=== PATIENT | male | born 1980 | race Caucasian/White ===

== ENCOUNTER 2023-01-17 14:41 | Emergency (ER) | payer SELFPAY ==
--- OUTSIDE RECORDS SUMMARY | 2023-01-17 14:47 | XMS REPORT | Continuity of Care Document ---
:1980 Author Organization [facility] t Address [address] [facility] [address] [place] [address] Care Team Providers Name Role Phone DR JUANIS BOND Attending Clinician Unavailable Inocente Vieira Attending Clinician Annmarie Rae Attending Clinician Edda Gonzalez Attending Clinician DR JUANIS BOND Admitting Clinician Unavailable Problems Condition Condition Condition Status Onset Resolution Last Treating Co mments Source Name Details Category Date Date Treatment Clinician Date M51.36 - M51.36 - Diagnosis Active 2015-06-28 Memoria OTHER OTHER 5-03 10:19:00 l INTERVERTE INTERVERTE 00:01: He rmann BRAL DISC BRAL DISC 00 DEGE DEGE Active 06/26/2015 MH [facility] Sinusitis Sinusitis Problem 2015-11-18 Memoria (disorder) (disorder) 05-08 04:02:37 l 05/09/2015 00:00: Wyatt n Problem 00 11/18/2015 2Complete d 10 day course of AMox-Clav. Denies current fever. 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 04:02:37 l interverte interverte He rmann bral disc bral disc (disorder) (disorder) Problem 11/18/2015 [facility] Left Left Problem Active 2020-02-08 Memor ia maxillary maxillary 05:14:16 l sinusitis sinusitis Herm emile Active Problem 02/08/2020 eCW: [facility] Exercise Exercise Diagnosis Active 2020-02-08 Memoria induced induced 05:14:16 l bronchospa bronchospa He rmann sm sm Active Diagnosis 02/08/2020 eCW: [facility] Seasonal Seasonal Diagnosis Active 2020-02-08 Memoria allergic allergic 05:14:16 l rhinitis rhinitis Wyatt n due to due to pollen pollen Active Diagnosis 02/08/2020 eCW: [facility] Chronic Chronic Diagnosis Active 2020-02-08 Memoria depression depression 05:14:16 l Active [place] Diagnosis 02/08/2020 eCW: [facility] Chronic Chronic Problem Active 2020-02-08 Me moria insomnia insomnia 05:14:16 l Active [place] Problem 02/08/2020 eCW: [facility] Depression Depressio Diagnosis Active 2020-02-08 Memoria with n with 05:14:16 l anxiety anxiety [place] Active Diagnosis 02/08/2020 eCW: [facility] Acute Acute Diagnosis Active 2018-11-17 Mem oria non-recurr non-recurr 04:11:43 l ent ent [place] maxillary maxillary sinusitis sinusitis Active Diagnosis 11/17/2018 eCW: [facility] Syncope, Syncope, Problem Active 2017-11-17 Memoria unspecifie unspecifie 04:11:19 l d syncope d syncope Herm emile type type Active Problem 11/17/2017 eCW: [facility] Exercise-i Exercise- Problem Active 2017-11-17 Memoria nduced induced 04:11:19 l asthma asthma [place] Active Problem 11/17/2017 eCW: [facility] Imbalance Imbalance Problem Active 2017-11-17 Memoria Active 04:11:19 l Problem [place] 11/17/2017 eCW: [facility] Chest pain Chest Problem Active 2017-11-17 M emoria at rest pain at 04:11:19 l rest [place] Active Problem 11/17/2017 eCW: [facility] Lower Lower Problem Active 2017-11-17 Memor ia abdominal abdominal 04:11:19 l pain pain [place] Active Problem 11/17/2017 eCW: [facility] Chronic Chronic Problem Active 2017-11-17 M emoria diarrhea diarrhea 04:11:19 l Active [place] Problem 11/17/2017 eCW: [facility] Screen for Screen Diagnosis Active 2017-06-10 Memoria STD for STD 04:11:42 l (sexually (sexually Herm emile transmitte transmitte d disease) d disease) Active Diagnosis 06/10/2017 eCW: [facility] Night Night Diagnosis Active 2017-06-10 Mem oria sweats sweats 04:11:27 l Active [place] Diagnosis 06/10/2017 eCW: [facility] Encounter Encounter Diagnosis Active 2020-02-08 Memoria for for 05:14:16 l screening screening Herm emile Active Diagnosis 02/08/2020 eCW: [facility] Acute Acute Diagnosis Active 2018-02-10 Mem oria non-recurr non-recurr 05:15:27 l ent ent [place] frontal frontal sinusitis sinusitis Active Diagnosis 02/10/2018 eCW: [facility] Acute Acute Diagnosis Active 2019-02-26 Mem oria bronchitis bronchitis 05:14:32 l , , [place] unspecifie unspecifie d organism d organism Active Diagnosis 02/26/2019 eCW: [facility] Seasonal Seasonal Problem Active 2016-03-27 Memoria allergic allergic 05:24:57 l rhinitis rhinitis Wy[place] n Active Problem 03/27/2016 eCW: [facility] Chest wall Chest Problem Active 2016-03-27 Memoria injury not wall 05:24:57 l elsewhere injury not Her chan classified elsewhere classified Active Problem 03/27/2016 eCW: [facility] Pain in Pain in Problem Active 2016-03-27 Me moria right right 05:24:57 l shoulder shoulder [place] n Active Problem 03/27/2016 eCW: [facility] Cervical Cervical Problem Active 2016-03-27 Memoria radiculopa radiculopa 05:24:57 l thy thy Active [place] n Problem 03/27/2016 eCW: [facility] Alopecia Alopecia Diagnosis Active 2015-05-08 Memoria areata areata 04:20:49 l Active [place] Diagnosis 05/08/2015 eCW: [facility] Acute Acute Diagnosis Active 2015-05-08 Mem oria sinusitis, sinusitis, 04:20:49 l unspecifie unspecifie He rmann d d Active Diagnosis 05/08/2015 eCW: [facility] Transient Transient Problem Active 2016-03-27 Memoria loss of loss of 05:24:57 l consciousn consciousn He rmann ess ess Active Problem 03/27/2016 eCW: [facility] Sebaceous Sebaceous Diagnosis Active 2016-03-27 Memoria cyst cyst 05:24:57 l Active [place] Diagnosis 03/27/2016 eCW: [facility] Local Local Diagnosis Active 2016-03-27 Mem oria infection infection 05:24:57 l of the of the [place] skin and skin and subcutaneo subcutaneo us tissue, us tissue, unspecifie unspecifie d d Active Diagnosis 03/27/2016 eCW: [facility] CERVICAL CERVICAL Diagnosis Active 2015-11-27 Memoria RAD RAD 11:57:00 l M64.12/RT M64.12/RT Herm emile SHOULDER SHOULDER UDU MITZI UDU MITZI Active [facility] RADICULOPA RADICULOP Diagnosis Active 2016-01-03 Memoria THY ATHY 11:27:00 l Active [place] [facility] Trace Allergies, Adverse Reactions, Alerts Allergy Allergy Status Severity Reaction(s) Onset Inactive Treating Comm ents Source Name Type Date Date Clinician Vicodin Vicodin Active Info Not 2019-02 Memori a Available 2-07 l 00:00: 00 No Known No Known Active Memori a Medicati Medicati l on on [place] Gabriel s s Social History Social Habit Start Date Stop Date Quantity Comments Source SmokeExposure: 2016-03-17 2016-03-17 [facility] 00:00:00 00:00:00 Medications Ordered Filled Start Stop Current Ordering Indication Dosage Frequency Signature Comments Components Source Medication Medication Date Date Medication? Clinician (SIG) Name Name Astjasper 2019-02 Yes Annmarie Nairi 2 sprays Memoria 2-16 l 05:14: DULoxetine 2019-02 Yes Annmarie Rosaleszzi 1 cap(s) Memoria Hydrochlori 2-16 l de 05:14: Quetiapine 2019-02 Yes Annmarie Rosaleszzi 1-2 tab(s) Memoria Fumarate 2-16 l 05:14: Astelin 2019-02 Yes Annmarie Pozzi 2 sprays Memoria 2-16 l 05:14: DULoxetine 2019-02 Yes Annmarie Rosaleszzi 1 cap(s) Memoria Hydrochlori 2-16 l de 05:14: [place] 16 Quetiapine 2020-1 Yes Annmarie Pozzi 1-2 tab(s) Memoria Fumarate 2-16 l 05:14: [place] 16 Quetiapine 2020-0 Yes Annmarie Pozzi TAKE 1 Memoria Fumarate 1-25 l 05:13: [place] 36 Cymbalta 2020-0 Yes Annmarie Pozzi TAKE 1 M emoria 1-25 CAPSULE BY l 05:13: MOUTH [place] 36 TWICE A DAY Quetiapine 2020-0 Yes Annmarie Pozzi TAKE 1 Memoria Fumarate 1-25 l 05:13: [place] 36 Cymbalta 2020-0 Yes Annmarie Pozzi TAKE 1 M emoria 1-25 CAPSULE BY l 05:13: MOUTH [place] 36 TWICE A DAY Cymbalta 2020-0 Yes Annmarie Pozzi 1 cap(s) Memoria 1-04 l 05:14: [place] 32 amoxicillin 2019-0 Yes Annmarie Pozzi 875 mg Memoria -clavulanat 1-04 l e 05:14: [place] 32 Zithromax 2020-0 Yes Annmarie Pozzi 2 today, Memoria Z-Alfonso 1-04 then one l 05:14: qd [place] 32 Cymbalta 2019-0 Yes Annmarie Pozzi 1 cap(s) Memoria 1-04 l 05:14: [place] 32 amoxicillin 2019-0 Yes Annmarie Pozzi 875 mg Memoria -clavulanat 1-04 l e 05:14: [place] 32 Zithromax 2019-0 Yes Annmarie Pozzi 2 today, Memoria Z-Alfonso 1-04 then one l 05:14: qd [place] 32 Fluticasone 2018-0 Yes Annmarie Pozzi 1 spray(s) Memoria Propionate 9-25 l 04:11: [place] 43 Seroquel 2019-0 Yes Annmarie Pozzi 1-2 tab(s) Memoria 9-25 l 04:11: [place] 43 Fluticasone 2019-0 Yes Annmarie Pozzi 1 spray(s) Memoria Propionate 9-25 l 04:11: [place] 43 Seroquel 2018-0 Yes Annmarie Pozzi 1-2 tab(s) Memoria 9-25 l 04:11: [place] 43 Seroquel 2019-0 Yes Annmarie Pozzi 1-2 tab(s) Memoria 3-13 l 04:13: Seroquel 2019-0 Yes Annmarie Pozzi 1-2 tab(s) Memoria 3-13 l 04:13: Augmentin 2019-0 Yes Annmarie Pozzi 1 tab(s) Memoria 3-08 l 00:00: Augmentin 2019-0 Yes Annmarie Pozzi 1 tab(s) Memoria 3-08 l 00:00: cefdinir 2018-1 Yes Annmarie Pozzi 1 cap(s) Memoria 2-19 l 05:15: cefdinir 2018-1 Yes Annmarei Pozzi 1 cap(s) Memoria 2-19 l 05:15: Seroquel 2018-0 Yes Annmarie Pozzi 1 tab(s) Memoria 9-14 l 04:11: Seroquel 2018-0 Yes Annmarie Pozzi 1 tab(s) Memoria 9-14 l 04:11: Seroquel 2018-0 Yes Annmarie Pozzi 1 tab(s) Memoria 6-22 l 04:11: Seroquel 2018-0 Yes Annmarie Pozzi 1 tab(s) Memoria 6-22 l 04:11: Bactrim DS 2018-0 Yes Annmarie Pozzi 1 tab(s) Memoria 4-18 l 04:11: Bactrim DS 2018-0 Yes Annmarie Pozzi 1 tab(s) Memoria 4-18 l 04:11: Cymbalta 2018-0 Yes Annmarie Pozzi 1 cap(s) Memoria 4-11 l 00:00: Seroquel 2018-0 Yes Annmarie Pozzi 1 tab(s) Memoria 4-11 l 00:00: Cymbalta 2018-0 Yes Annmarie Pozzi 1 cap(s) Memoria 4-11 l 00:00: Seroquel 2018-0 Yes Annmarie Pozzi 1 tab(s) Memoria 4-11 l 00:00: Bactrim DS 2017-0 Yes Annmarie Pozzi 1 tab(s) Memoria 2-02 l 05:24: Bactrim DS 2017-0 Yes Annmarie Pozzi 1 tab(s) Memoria 2-02 l 05:24: [place] 57 Medrol Dose 2015-02 Yes Annmarie Pozzi As Memoria Pack 1-18 directed l 05:19: [place] 05 Medrol Dose 2015-02 Yes Annmarie Pozzi As Memoria Pack 1-18 directed l 05:19: Fluticasone 2015-02 Yes Annmarie Pozzi 2 sen Memoria Propionate 0-20 l 04:12: 46 prednisone 2015-02 Yes Annmarie Pozzi 1 tab(s) Memoria 0-20 l 04:12: 46 Augmentin 2015-02 Yes Annmarie Pozzi 875 mg Memoria 0-20 l 04:12: 46 Fluticasone 2015-02 Yes Annmarie Pozzi 2 sen Memoria Propionate 0-20 l 04:12: 46 prednisone 2015-02 Yes Annmarie Pozzi 1 tab(s) Memoria 0-20 l 04:12: Augmentin 2015-02 Yes Annmarie Pozzi 875 mg Memoria 0-20 l 04:12: Zofran No Edenilson K 4 mg = 1 Memor ia 5-19 Vera tabs, l 16:00: Tab-Dis, [place] 00 Oral, Once, first dose 07/12/15 11:00:00 CDT, stop date 07/12/15 11:00:00 CDT Zofran No Edenilson K 4 mg = 1 Memor ia 5-19 Vera tabs, l 16:00: Tab-Dis, [place] 00 Oral, Once, first dose 07/12/15 11:00:00 CDT, stop date 07/12/15 11:00:00 CDT LR 1,000 mL No Senthil 1,000 mL, Memoria -19 [place] IV, 75 l 15:13: mL/hr, start date 07/12/15 10:13:00 CDT Saline Lock No Senthil 10 mL, Mem oria Flush -19 [place] Soln, IV l 15:13: Push, As Indicated PRN for flush, first dose 07/12/15 10:13:00 CDT LR 1,000 mL No Senthil 1,000 mL, Memoria -19 [place] IV, 75 l 15:13: mL/hr, start date 07/12/15 10:13:00 CDT [place] No Senthil 10 mL, Mem oria Flush 07-11 [place] Soln, IV l 15:13: Push, As Indicated PRN for flush, first dose 07/12/15 10:13:00 CDT [facility] No Edenilson K 800 mL, Memoria Medication 07-11 Vera Soln-IV, l 15:01: IV, Once, first dose 07/12/15 10:01:00 CDT, stop date 07/12/15 10:01:00 CDT [facility] No Edenilson K 800 mL, Memoria Medication 07-11 Vera Soln-IV, l 15:01: IV, Once, first dose 07/12/15 10:01:00 CDT, stop date 07/12/15 10:01:00 CDT propofol No Conner 40 mg = 4 Me moria 5-19 Wheat mL, l 14:48: Emulsion, [place] 00 IV, Once, first dose 07/12/15 9:48:00 CDT, stop date 07/12/15 9:48:00 CDT propofol No Conner 40 mg = 4 Me moria 5-19 [place] mL, l 14:48: Emulsion, [place] 00 IV, Once, first dose 07/12/15 9:48:00 CDT, stop date 07/12/15 9:48:00 CDT propofol No Conner 50 mg = 5 Me moria 5-19 [place] mL, l 14:47: Emulsion, [place] 00 IV, Once, first dose 07/12/15 9:47:00 CDT, stop date 07/12/15 9:47:00 CDT propofol No Conner 50 mg = 5 Me moria 5-19 [place] mL, l 14:47: Emulsion, [place] 00 IV, Once, first dose 07/12/15 9:47:00 CDT, stop date 07/12/15 9:47:00 CDT fentaNYL No Conner 50 mcg = 1 M emoria 5-19 [place] mL, l 14:45: Injection, [place] 00 IV, Once, first dose 07/12/15 9:45:00 CDT, stop date 07/12/15 9:45:00 CDT fentaNYL No Conner 50 mcg = 1 M emoria 5-19 [place] mL, l 14:45: Injection, [place] 00 IV, Once, first dose 07/12/15 9:45:00 CDT, stop date 07/12/15 9:45:00 CDT fentaNYL No [place] 50 mcg = 1 M emoria 5-19 [place] mL, l 14:42: Injection, [place] 00 IV, Once, first dose 07/12/15 9:42:00 CDT, stop date 07/12/15 9:42:00 CDT fentaNYL No [place] 50 mcg = 1 M emoria 5-19 [place] mL, l 14:42: Injection, [place] 00 IV, Once, first dose 07/12/15 9:42:00 CDT, stop date 07/12/15 9:42:00 CDT fentaNYL No [place] 50 mcg = 1 M emoria 5-19 [place] mL, l 14:36: Injection, [place] 00 IV, Once, first dose 07/12/15 9:36:00 CDT, stop date 07/12/15 9:36:00 CDT fentaNYL No [place] 50 mcg = 1 M emoria 5-19 [place] mL, l 14:36: Injection, [place] 00 IV, Once, first dose 07/12/15 9:36:00 CDT, stop date 07/12/15 9:36:00 CDT fentaNYL No [place] 50 mcg = 1 M emoria 5-19 [place] mL, l 14:34: Injection, [place] 00 IV, Once, first dose 07/12/15 9:34:00 CDT, stop date 07/12/15 9:34:00 CDT fentaNYL No [place] 50 mcg = 1 M emoria 5-19 [place] mL, l 14:34: Injection, [place] 00 IV, Once, first dose 07/12/15 9:34:00 CDT, stop date 07/12/15 9:34:00 CDT ceFAZolin No [place] 0.9 gm, Mem oria 5-19 [place] Powder-Inj l 14:33: , IV, Once, first dose 07/12/15 9:33:00 CDT, stop date 07/12/15 9:33:00 CDT ceFAZolin No [place] 0.9 gm, Mem oria 5-19 [place] Powder-Inj l 14:33: , IV, Once, first dose 07/12/15 9:33:00 CDT, stop date 07/12/15 9:33:00 CDT fentaNYL No [place] 50 mcg = 1 M emoria 5-19 [place] mL, l 14:29: Injection, IV, Once, first dose 07/12/15 9:29:00 CDT, stop date 07/12/15 9:29:00 CDT fentaNYL No [place] 50 mcg = 1 M emoria 5-19 [place] mL, l 14:29: Injection, IV, Once, first dose 07/12/15 9:29:00 CDT, stop date 07/12/15 9:29:00 CDT Lidocaine Yes Edenilson K 0.2 mL, Mem oria 2% 0.2 mL - Vera Injection, l IV Start 11:58: Subcutaneo Her chan [[facility]] 00 us, Once PRN for other (see comment), first dose 07/12/15 6:58:00 CDT LR 1,000 mL No Edenilson K 1,000 mL, Memoria 5-19 Vera IV, 30 l 11:58: mL/hr, start date 07/12/15 6:58:00 CDT Lidocaine Yes Edenilson K 0.2 mL, Mem oria 2% 0.2 mL - [place] Injection, l IV Start 11:58: Subcutaneo Her chan [[place]] 00 us, Once PRN for other (see comment), first dose 07/12/15 6:58:00 CDT LR 1,000 mL No Edenilson K 1,000 mL, Memoria 5-19 Vera IV, 30 l 11:58: mL/hr, start date 07/12/15 6:58:00 CDT fluocinonid Yes 1 erich, Te yue e 0.05% 5-11 TOP, 0 l topical 17:09: Refill(s), Herm emile cream 00 alopecia biotin 0 Yes 0 Memoria 5-11 Refill(s) l 17:09: [place] 00 fluocinonid 0 Yes 1 erich, Te yue e 0.05% 5-11 TOP, 0 l topical 17:09: Refill(s), Herm emile cream 00 alopecia biotin 0 Yes 0 Memoria 5-11 Refill(s) l 17:09: [place] 00 ProAir HFA Yes 1 puffs, Mem oria 5-11 INH, QID, l 17:06: PRN as [place] 00 needed for wheezing, 0 Refill(s), exercise induced asthma ProAir HFA Yes 1 puffs, Mem oria 5-11 INH, QID, l 17:06: PRN as [place] 00 needed for wheezing, 0 Refill(s), exercise induced asthma fluticasone Yes 1 sprays, M emoria 50 mcg/inh 5-11 Nasal, l nasal spray 17:05: Daily, 0 He rmann 00 Refill(s), allergy fluticasone Yes 1 sprays, M emoria 50 mcg/inh 5-11 Nasal, l nasal spray 17:05: Daily, 0 He rmann 00 Refill(s), allergy cyclobenzap Yes 10 mg = 1 M emoria rine 10 mg 5-11 tabs, l oral tablet 16:21: Oral, TID, [place] 00 PRN for spasm, # 30 tabs, 0 Refill(s), muscle relaxant cyclobenzap Yes 10 mg = 1 M emoria rine 10 mg 5-11 tabs, l oral tablet 16:21: Oral, TID, [place] 00 PRN for spasm, # 30 tabs, 0 Refill(s), muscle relaxant traMADol 50 Yes 50 mg = 1 M emoria mg oral 5-11 tabs, l tablet 16:19: Oral, [place] 00 q8hr, PRN as needed for pain, 0 Refill(s), pain meloxicam Yes 15 mg = 1 Mem oria 15 mg oral 5-11 tabs, l tablet 16:19: Oral, [place] 00 Daily, instructed to hold 7 days prior to procedure, 0 Refill(s)i nstructed to hold 7 days prior to procedure traMADol 50 2016- Yes 50 mg = 1 M emoria mg oral 5-11 tabs, l tablet 16:19: Oral, [place] 00 q8hr, PRN as needed for pain, 0 Refill(s), pain meloxicam 2016- Yes 15 mg = 1 Mem oria 15 mg oral 5-11 tabs, l tablet 16:19: Oral, [place] 00 Daily, instructed to hold 7 days prior to procedure, 0 Refill(s)i nstructed to hold 7 days prior to procedure Immunizations Ordered Filled Immunization Date Status Comments [facility] e Immunization Name Name PPD 2017-06-03 Completed [facility] 00:00:00 [place] PPD Unknown Completed [facility] Vital Signs Vital Name Observation Time Observation Value Comments Source Height 2020-01-30 16:45:00 [facility] Weight 2020-01-30 16:45:00 [facility] [place] Temperature Oral (F) 2020-01-30 16:45:00 97.8 F [facility] [place] Diastolic (mm Hg) 2020-01-30 16:45:00 Mem orial [place] Systolic (mm Hg) 2020-01-30 16:45:00 [facility] Height 2019-02-18 15:45:00 [facility] [place] Weight 2019-02-18 15:45:00 [facility] [place] Temperature Oral (F) 2019-02-18 15:45:00 98.1 F [facility] [place] Diastolic (mm Hg) 2019-02-18 15:45:00 Mem orial [place] Systolic (mm Hg) 2019-02-18 15:45:00 Te [facility] Height 2018-11-08 21:15:00 [facility] [place] Weight 2018-11-08 21:15:00 [facility] [place] Temperature Oral (F) 2018-11-08 21:15:00 97.6 F [facility] [place] Diastolic (mm Hg) 2018-11-08 21:15:00 Mem orial [place] Systolic (mm Hg) 2018-11-08 21:15[facility] 2018-04-30 20:15:00 [facility] [place] Weight 2018-04-30 20:15:00 [facility] [place] Temperature Oral (F) 2018-04-30 20:15:00 96.6 F [facility] [place] Diastolic (mm Hg) 2018-04-30 20:15:00 Mem orial [place] Systolic (mm Hg) 2018-04-30 20:15:00 Te rial [place] Height 2018-02-03 16:30:00 [facility] [place] Weight 2018-02-03 16:30:00 [facility] [place] Temperature Oral (F) 2018-02-03 16:30:00 96.3 F [facility] [place] Diastolic (mm Hg) 2018-02-03 16:30:00 Mem orial [place] Systolic (mm Hg) 2018-02-03 16:30:00 Te rial [place] Height 2017-11-10 15:45:00 [facility] [place] Weight 2017-11-10 15:45:00 [facility] [place] Temperature Oral (F) 2017-11-10 15:45:00 96.1 F [facility] [place] Diastolic (mm Hg) 2017-11-10 15:45:00 Mem orial [place] Systolic (mm Hg) 2017-11-10 15:45:00 Te rial [place] Height 2017-06-03 20:30:00 [facility] [place] Weight 2017-06-03 20:30:00 [facility] [place] Temperature Oral (F) 2017-06-03 20:30:00 97.3 F [facility] [place] Diastolic (mm Hg) 2017-06-03 20:30:00 Mem orial [place] Systolic (mm Hg) 2017-06-03 20:30:00 Te rial [place] Height 2016-03-17 21:30:00 [facility] [place] Weight 2016-03-17 21:30:00 [facility] [place] Temperature Oral (F) 2016-03-17 21:30:00 97.3 F [facility] [place] Diastolic (mm Hg) 2016-03-17 21:30:00 Mem orial [place] Systolic (mm Hg) 2016-03-17 21:30:00 Te rial [place] Height 2016-01-02 17:00:00 [facility] [place] Weight 2016-01-02 17:00:00 [facility] [place] Temperature Oral (F) 2016-01-02 17:00:00 96.6 F [facility] [place] Diastolic (mm Hg) 2016-01-02 17:00:00 Mem orial [place] Systolic (mm Hg) 2016-01-02 17:00:00 Te rial [place] Height 2015-11-15 20:45:00 [facility] [place] Weight 2015-11-15 20:45:00 [facility] [place] Temperature Oral (F) 2015-11-15 20:45:00 97.1 F [facility] [place] Diastolic (mm Hg) 2015-11-15 20:45:00 Mem orial [place] Systolic (mm Hg) 2015-11-15 20:45:00 Te rial [place] Systolic (mm Hg) 2015-07-12 15:58:00 Te rial [place] Respitory Rate 2015-07-12 15:58:00 Memori al [place] Heart Rate 2015-07-12 15:20:00 [facility] [place] Systolic (mm Hg) 2015-07-12 15:20:00 Te rial [place] Respitory Rate 2015-07-12 15:20:00 Memori al [place] Heart Rate 2015-07-12 15:10:00 [facility] [place] Respitory Rate 2015-07-12 15:10:00 Memori al [place] Systolic (mm Hg) 2015-07-12 15:10:00 Te rial [place] Heart Rate 2015-07-12 15:00:00 [facility] [place] Temperature Oral (F) 2015-07-12 14:50:00 36.7 Eliza [facility] [place] Temperature Oral (F) 2015-07-12 12:00:00 36.8 Eliza [facility] [place] Height 2015-07-12 12:00:00 180.34 cm [facility] [place] Weight 2015-07-12 12:00:00 [facility] [place] Height 2015-07-04 16:15:00 180.34 cm [facility] [place] Weight 2015-07-04 16:15:00 [facility] [place] Height 2015-05-03 16:15:00 [facility] [place] Weight 2015-05-03 16:15:00 [facility] [place] Temperature Oral (F) 2015-05-03 16:15:00 97.7 F [facility] [place] Diastolic (mm Hg) 2015-05-03 16:15:00 Mem orial [place] Systolic (mm Hg) 2015-05-03 16:15:00 Te rial [place] Procedures Procedure Date / Time Performed Performing Clinician [facility] e Radiologic examination, 2015-11-16 05:00:00 Te Mott spine, cervical; 4 or 5 views EGD 2012-02-24 00:00:00 Isa Her chan Adenoids removed 1996-02-24 00:00:00 Isa verdin Maxillary sinus surgery 1991-02-23 00:00:00 Te [place] Encounters Start End Encounter Admission Attending Care Care Encounter Source Date/Time Date/Time Type Type Clinicians Facility Department ID 2020-10-02 2020-10-02 Outpatient [facility] F[facility]OVID [id number] [facility] 00:00:00 00:00:00 [id number] 2020-01-30 [facility] [place] [id number] Memoria 10:45:00 10:45:00 [facility] [place] [facility] 2020-01-26 2020-01-26 [facility] [place] [id number] Memoria 09:44:00 09:44:00 [facility] [place] [facility] 2019-03-18 2019-03-18 [facility] [place] [id number] Memoria 15:11:00 15:11:00 [facility] [place] Practice 2019-02-18 2019-02-18 [facility] [place] [id number] Memoria 09:45:00 09:45:00 [facility] [place] [facility] 2019-02-17 2019-02-17 [facility] [place] [id number] Memoria 15:41:00 15:41:00 [facility] [place] [facility] 2018-11-16 2018-11-16 [facility] [place] [id number] Memoria 11:33:00 11:33:00 [facility] [place] [facility] 2018-11-09 2018-11-09 [facility] [place] [id number] Memoria 14:19:00 14:19:00 [facility] [place] [facility] 2018-11-08 2018-11-08 [facility] [place] [id number] Memoria 16:15:00 16:15:00 [facility] [place] [facility] 2018-07-06 2018-07-06 [facility] [place] [id number] Memoria 10:40:00 10:40:00 [facility] [place] Practice 2018-04-30 2018-04-30 [facility] [place] [id number] Memoria 15:15:00 15:15:00 [facility] [place] [facility] 2018-02-03 2018-02-03 [facility] [place] [id number] Memoria 10:30:00 10:30:00 [facility] [place] [facility] 2017-11-10 2017-11-10 [facility] [place] [id number] Memoria 10:45:00 10:45:00 [facility] [place] 2017-11-05 2017-11-05 [facility] [place] [id number] Memoria 07:36:00 07:36:00 [facility] [place] [facility] 2017-08-13 2017-08-13 [facility] [place] [id number] Memoria 10:54:00 10:54:00 [facility] [place] [facility] 2017-07-31 2017-07-31 [facility] [place] [id number] Memoria 14:41:00 14:41:00 [facility] [place] [facility] 2017-06-05 2017-06-05 [facility] [place] [id number] Memoria 14:30:00 14:30:00 [facility] [place] [facility] 2017-06-04 2017-06-04 [facility] [place] [id number] Memoria 11:49:00 11:49:00 [facility] [facility] 2017-06-03 2017-06-03 [facility] [place] [id number] [id number] [facility] 15:30:00 15:30:00 [facility] 2016-03-17 2016-03-17 f/u with nullFlavo [place] a0a o0fpa-4 [facility] 21:30:00 21:30:00 shoulder r Family 426-4326-8 l pain/other Practice l86-8fs4ov ermann ad7e6c 2016-03-17 2016-03-17 f/u with nullFlavo [place] a0a c7odc-9 [facility] 21:30:00 21:30:00 shoulder r Family 426-4326-8 l pain/other Practice f68-5nt1eu ermann ad7e6c 2016-03-17 2016-03-17 [facility] [place] 209 [id number] [facility] 15:30:00 15:30:00 [facility] 2016-03-11 2016-03-11 FMLA nullFlavo [place] b093 33a5-d [facility] 21:42:00 21:42:00 r Family 704-4dae-b l Practice 39c-9f6dd5 Herm emile u1l279 2016-03-11 2016-03-11 FMLA nullFlavo [place] b305 9696-5 [facility] 21:42:00 21:42:00 r Family n37-5dof-8 l Practice ce6-754302 Herm emile e246d2 2016-03-11 2016-03-11 FMLA nullFlavo [place] b305 9696-5 [facility] 21:42:00 21:42:00 r Family j16-1nry-2 l Practice ce6-116049 Herm emile e246d2 2016-03-11 2016-03-11 FMLA nullFlavo [place] b093 33a5-d [facility] 21:42:00 21:42:00 r Family 704-4dae-b l Practice 39c-9f6dd5 Herm emile c4p503 2016-03-11 2016-03-11 Dropping nullFlavo [place] a99 y5249-h [facility] 20:56:00 20:56:00 form off r Family 01d-4b58-8 l today Practice 7aa-53dbf3 Herm emile 181e8b 2016-03-11 2016-03-11 Dropping nullFlavo [place] a99 s2499-s [facility] 20:56:00 20:56:00 form off r Family 01d-4b58-8 l today Practice 7aa-53dbf3 Herm emile 181e8b 2016-03-11 2016-03-11 Dropping nullFlavo [place] 229 54afe-0 [facility] 20:56:00 20:56:00 form off r Family a2b-9153-9 l today Practice 008-bc8d94 Herm emile 8796ae 2016-03-11 2016-03-11 Dropping nullFlavo [place] 696 146d7-9 [facility] 20:56:00 20:56:00 form off r Family ee6-4fcd-9 l today Practice 508-45f5b2 Herm emile c79b4c 2016-03-11 2016-03-11 Dropping nullFlavo [place] 696 057d2-4 [facility] 20:56:00 20:56:00 form off r Family ee6-4fcd-9 l today Practice 508-45f5b2 Herm emile c79b4c 2016-03-11 2016-03-11 Dropping nullFlavo [place] 229 54afe-0 [facility] 20:56:00 20:56:00 form off beatriz Perez a8o-2197-6 [facility] 008-bc8d94 [facility] emile 8796ae 2016-03-11 2016-03-11 Outpatient [facility] [place] 209 4788 [facility] 15:42:00 15:42:00 [facility] 2016-03-11 2016-03-11 Outpatient [place] 209 4722 [facility] 14:56:00 14:56:00 [facility] 2016-02-28 2016-02-29 Outpt Diag nullFlavo [facility] [id number] [id number] Memoria 15:11:00 05:59:00 Services r Outpatient 01 [facility] 2016-02-28 2016-02-29 Outpt Diag nullFlavo [facility] [id number] Mem[facility] 15:11:00 05:59:00 Services r Outpatient [address] [place] [address] 2016-02-28 2016-02-28 Outpatient Dariel 2.16.840. 2.16.840.1. [id number] 09:11:00 23:59:00 Inocente Eli.[id number]. [id number] 01 3.615.34 5.34 2015-12-27 2016-01-26 OP Therapy nullFlavo [facility] 04[address] 80975 Memoria 16:00:00 05:59:00 Patients r Dax 01 hugo Jarret [place] 2015-12-27 2016-01-26 OP Therapy nullFlavo [facility] [id number] Memoria 16:00:00 05:59:00 Patients beatriz Verduzco hugo Jarret [place] 2015-12-27 2016-01-25 Outpatient Annmarie Rae 2.16.840. 2.16.840. 1. [id number] 11:00:00 23:59:00 Beatriz Eli.[id number]. [id number] 01 3.615.55 5.55 2016-01-11 2016-01-11 Call if nullFlavo [place] 8e87 115e-a [facility] 18:01:00 18:01:00 needed r 97a-4100-9 l Practice 8f9-onl192 Herm emile 14187e 2016-01-11 2016-01-11 Call if nullFlavo [place] bfaa 1d43-a [facility]oria 18:01:00 18:01:00 needed r Family 369-4bbb-8 l Practice k1n-3d935v Herm emile ex6330 2016-01-11 2016-01-11 Call if nullFlavo [place] dab6 a958-5 [facility]oria 18:01:00 18:01:00 needed r Family 7a1-2701-8 l Practice 9c6-00s0ao Herm emile 5la172 2016-01-11 2016-01-11 Call if nullFlavo [place] 33c7 e169-9 [facility]oria 18:01:00 18:01:00 needed r Family 4ff-4722-8 l Practice 17f-4a25ea Herm emile lw9162 2016-01-11 2016-01-11 Call if nullFlavo [place] 8e87 115e-a [facility]oria 18:01:00 18:01:00 needed r Family 97a-4100-9 l Practice 3n8-fhr287 Herm emile 54186u 2016-01-11 2016-01-11 Call if nullFlavo [place] 33c7 e169-9 Memoria 18:01:00 18:01:00 needed r Family 4ff-4722-8 l Practice 17f-4a25ea Herm emile vo2748 2016-01-11 2016-01-11 Call if nullFlavo [place] dab6 a958-5 [facility]oria 18:01:00 18:01:00 needed r Family 9x7-6729-4 l Practice 4c2-74u9al Herm emile 9ns478 2016-01-11 2016-01-11 Call if nullFlavo [place] bfaa 1d43-a [facility] 18:01:00 18:01:00 needed r Family 369-4bbb-8 l Practice l7i-6l382c Herm emile gs4723 2016-01-11 2016-01-11 Outpatient [facility] [place] 206 4725 [facility] 12:01:00 12:01:00 [facility] 2016-01-03 2016-01-03 Needs nullFlavo [place] 37e4 6ad1-0 [facility] 21:05:00 21:05:00 referral r Family 49c-44fe-b l Practice 742-527c90 Herm emile e2b3de 2016-01-03 2016-01-03 Needs nullFlavo [place] 50d1 27d1-6 [facility] 21:05:00 21:05:00 referral r Family 51c-4fec-9 l Practice s39-y30nj9 Herm emile 4ee33d 2016-01-03 2016-01-03 Needs nullFlavo [place] 049d 0a3d-7 [facility] 21:05:00 21:05:00 referral r Family 04d-403b-b l Practice 07a-w84102 Herm emile h4840i 2016-01-03 2016-01-03 Needs nullFlavo [place] 04d1 e873-4 [facility]oria 21:05:00 21:05:00 referral r Family cde-4120-9 l Practice 64c-ea1dbf Herm emile 4147d7 2016-01-03 2016-01-03 Needs nullFlavo [place] 7284 f727-d Memoria 21:05:00 21:05:00 referral r Family 972-43b6-9 l Practice 8n1-d6n974 Herm emile sl9925 2016-01-03 2016-01-03 Needs nullFlavo [place] e8c5 7ec5-0 [facility] 21:05:00 21:05:00 referral r Family r3s-1143-3 l Practice 9g0-n09w23 Herm emile b7d3ea 2016-01-03 2016-01-03 Needs nullFlavo [place] 37e4 6ad1-0 [facility]oria 21:05:00 21:05:00 referral r Family 49c-44fe-b l Practice 742-527c90 Herm emile e2b3de 2016-01-03 2016-01-03 Needs nullFlavo [place] 50d1 27d1-6 [facility]oria 21:05:00 21:05:00 referral r Family 51c-4fec-9 l Practice s14-g44jc0 Herm emile 4ee33d 2016-01-03 2016-01-03 Needs nullFlavo [place] e8c5 7ec5-0 [facility]oria 21:05:00 21:05:00 referral r Family x3i-4466-4 l Practice 2m8-n23q73 Herm emile b7d3ea 2016-01-03 2016-01-03 Needs nullFlavo [place] 7284 f727-d [facility]oria 21:05:00 21:05:00 referral r Family 972-43b6-9 l Practice 9e6-c6z605 Herm emile fj6436 2016-01-03 2016-01-03 Needs nullFlavo [place] 04d1 e873-4 Memoria 21:05:00 21:05:00 referral r Family cde-4120-9 l Practice 64c-ea1dbf Herm emile 4147d7 2016-01-03 2016-01-03 Needs nullFlavo [place] 049d 0a3d-7 [facility]oria 21:05:00 21:05:00 referral r Family 04d-403b-b l Practice 07a-d46881 Herm emile t4462n 2016-01-03 2016-01-03 Outpatient [facility] [place] 206 0366 [facility] 15:05:00 15:05:00 [facility] 2016-01-02 2016-01-02 shoulder nullFlavo [place] 380 6051c-4 Memoria 17:00:00 17:00:00 pain r Family 9df-4c1a-9 l Practice z76-20m348 Herm emile 8873fd 2016-01-02 2016-01-02 shoulder nullFlavo [place] 428 iq893-m Memoria 17:00:00 17:00:00 pain r Family c9d-5c57-5 l Practice cd8-10a52e Herm emile 515f02 2016-01-02 2016-01-02 shoulder nullFlavo [place] 0c2 2662d-d [facility]oria 17:00:00 17:00:00 pain r Family 0de-4d05-a l Practice 0x9-8h1hy2 Herm emile f659e8 2016-01-02 2016-01-02 shoulder nullFlavo [place] 84d oi1fm-4 Memoria 17:00:00 17:00:00 pain r Family 830-48ce-b l Practice j20-7l1f95 Herm emile 761027 6843-11-09 2016-01-02 shoulder nullFlavo [place] 84d m0q1g-h [facility]oria 17:00:00 17:00:00 pain r Family q12-12n0-s l Practice 44f-e24e27 Herm emile 6443c1 2016-01-02 2016-01-02 shoulder nullFlavo [place] 380 6051c-4 Memoria 17:00:00 17:00:00 pain r Family 9df-4c1a-9 l Practice v19-58s828 Herm emile 8873fd 2016-01-02 2016-01-02 shoulder nullFlavo [place] 84d m1b4s-o [facility]oria 17:00:00 17:00:00 pain r Family d07-62k7-p l Practice 44f-e24e27 Herm emile 6443c1 2016-01-02 2016-01-02 shoulder nullFlavo [place] 84d uu1kk-0 Memoria 17:00:00 17:00:00 pain r Family 830-48ce-b l Practice u58-1b8c60 Herm emile 971684 5195-11-09 2016-01-02 shoulder nullFlavo [place] 0c2 2662d-d Memoria 17:00:00 17:00:00 pain r Family 0de-4d05-a l Practice 6v7-9t4et0 Herm emile f659e8 2016-01-02 2016-01-02 shoulder nullFlavo [place] 428 ii283-r Memoria 17:00:00 17:00:00 pain r Family n4l-0k39-7 l Practice cd8-10a52e Herm emile 515f02 2016-01-02 2016-01-02 Outpatient [facility] [place] 205 8294 [facility] 11:00:00 11:00:00 [facility] 2015-11-27 2015-12-27 OP [place]Flavo [place] [id number] [id number] Memoria 16:52:00 04:59:00 Patients r Dax 00 l [facility] 2015-11-27 2015-12-27 OP Therapy nullFlavo SMR [id number] Memoria 16:52:00 04:59:00 Patients r Dax 00 l Jarret [facility] 2015-11-27 2015-12-26 Outpatient Annmarie Rae 2.16.840. 2.16.840. 1. [id number] 11:52:00 23:59:00 R [id number]. [id number] 00 3.615.55 5.55 2015-11-20 2015-11-20 x-ray nullFlavo [place] e90a 318f-9 [facility]oria 14:27:00 14:27:00 results r Family n13-5128-g l Practice 10d-b8eddf Herm emile m45088 2015-11-20 2015-11-20 x-ray nullFlavo [place] abc4 10e0-6 [facility]oria 14:27:00 14:27:00 results r Family 361-40e0-a l Practice 532-00553k Herm emile 920f44 2015-11-20 2015-11-20 x-ray nullFlavo [place] 56b0 6658-6 Memoria 14:27:00 14:27:00 results r Family 1fc-4705-a l Practice 517-81de44 Herm emile 827dec 2015-11-20 2015-11-20 x-ray nullFlavo [place] 576c fab8-3 Memoria 14:27:00 14:27:00 results r Family s05-46b3-j l Practice t42-1kgxd6 Herm emile ca9a18 2015-11-20 2015-11-20 x-ray nullFlavo [place] 9cad 3ba2-b [facility]oria 14:27:00 14:27:00 results r Family 4z4-918l-5 l Practice 54f-529db3 Herm emile ifz813 2015-11-20 2015-11-20 x-ray nullFlavo [place] f666 1dfa-c Memoria 14:27:00 14:27:00 results r Family 73b-419e-a l Practice u69-60515o Herm emile 644e9e 2015-11-20 2015-11-20 x-ray nullFlavo [place] e90a 318f-9 Memoria 14:27:00 14:27:00 results r Family o55-7594-u l Practice 10d-b8eddf Herm emile u59891 2015-11-20 2015-11-20 x-ray nullFlavo [place] abc4 10e0-6 [facility]oria 14:27:00 14:27:00 results r Family 361-40e0-a l Practice 532-15046h Herm emile 920f44 2015-11-20 2015-11-20 x-ray nullFlavo [place] f666 1dfa-c Memoria 14:27:00 14:27:00 results r Family 73b-419e-a l Practice r82-39520i Herm emile 644e9e 2015-11-20 2015-11-20 x-ray nullFlavo [place] 9cad 3ba2-b [facility]oria 14:27:00 14:27:00 results r Family 6o4-487u-0 l Practice 54f-529db3 Herm emile nva760 2015-11-20 2015-11-20 x-ray nullFlavo [place] 576c fab8-3 Memoria 14:27:00 14:27:00 results r Family u92-54f5-x l Practice h73-9onzz8 Herm emile ca9a18 2015-11-20 2015-11-20 x-ray nullFlavo [place] 56b0 6658-6 Memoria 14:27:00 14:27:00 results r Family 1fc-4705-a l Practice 517-81de44 Herm emile 827dec 2015-11-20 2015-11-20 x-ray nullFlavo [place] 3 433a-a Memoria 13:27:00 13:27:00 results r Family ab6-45eb-b l Practice t00-4o0500 Herm emile 23ea6b 2015-11-20 2015-11-20 x-ray nullFlavo [place] fe4e d337-2 Memoria 13:27:00 13:27:00 results r Family 8m4-8w71-3 l Practice v64-c44eu7 Herm emile 749767 4638-09-27 2015-11-20 x-ray nullFlavo [place] 3 433a-a Memoria 13:27:00 13:27:00 results r Family ab6-45eb-b l Practice b25-0q7153 Herm emile 23ea6b 2015-11-20 2015-11-20 x-ray nullFlavo [place] fe4e d337-2 Memoria 13:27:00 13:27:00 results r Family 8u3-6d90-2 l Practice s73-p61tn0 Herm emile 209076 0116-09-27 2015-11-20 Outpatient [facility] [place] 203 6078 [facility] 08:27:00 08:27:00 [facility] 2015-11-16 2015-11-16 Outpatient 2.16.840. 2.16.840.1. 4 0962 Memoria 10:59:14 23:59:59 [id number]. 620147.3.20 l 3.2081.20 81.2000 [facility] n [facility] 2015-11-16 2015-11-16 resend rx nullFlavo [place] 05 m54rp4-w [facility] 21:11:00 21:11:00 r Family 2e6-0p69-1 l Practice j9q-4651b8 Herm emile 425710 7973-09-23 2015-11-16 resend rx nullFlavo [place] 6f 295w78-q Memoria 21:11:00 21:11:00 r Family o10-1dxo-4 l Practice bce-0dcd37 Herm emile e8c19d 2015-11-16 2015-11-16 resend rx nullFlavo [place] 7a b3d7nh-3 Memoria 21:11:00 21:11:00 r Family k95-505t-q l Practice 69e-b9ed15 Herm emile 5aa57c 2015-11-16 2015-11-16 resend rx nullFlavo [place] 76 c666gr-6 Memoria 21:11:00 21:11:00 r Family 713-4726-8 l Practice cbe-899dd9 Herm emile gq3510 2015-11-16 2015-11-16 resend rx nullFlavo [place] 82 0716bb-8 Memoria 21:11:00 21:11:00 r Family 94a-4798-8 l Practice c9g-12w948 Herm emile b45bbd 2015-11-16 2015-11-16 resend rx nullFlavo [place] 06 181903-8 Memoria 21:11:00 21:11:00 r Family g56-379x-3 l Practice 864-807536 Herm emile 602ed7 2015-11-16 2015-11-16 resend rx nullFlavo [place] 05 e87gb5-g Memoria 21:11:00 21:11:00 r Family 1w5-2r32-3 l Practice u3n-9263s8 Herm emile 396427 5569-09-23 2015-11-16 resend rx nullFlavo [place] 6f 932i60-k Memoria 21:11:00 21:11:00 r Family x50-9jed-9 l Practice bce-0dcd37 Herm emile e8c19d 2015-11-16 2015-11-16 resend rx nullFlavo [place] 06 123524-9 Memoria 21:11:00 21:11:00 r Family s54-300o-0 l Practice 864-236627 Herm emile 602ed7 2015-11-16 2015-11-16 resend rx nullFlavo [place] 82 0716bb-8 Memoria 21:11:00 21:11:00 r Family 94a-4798-8 l Practice x5u-05o851 Herm emile b45bbd 2015-11-16 2015-11-16 resend rx nullFlavo [place] 76 m362cr-6 Memoria 21:11:00 21:11:00 r Family 713-4726-8 l Practice cbe-899dd9 Herm emile kq9739 2015-11-16 2015-11-16 resend rx nullFlavo [place] 7a n6u7ng-8 [facility]oria 21:11:00 21:11:00 r Family u30-989d-z l Practice 69e-b9ed15 Herm emile 5aa57c 2015-11-16 2015-11-16 resend rx nullFlavo [place] a1 4yl99p-o [facility]oria 20:11:00 20:11:00 r Family 62e-4411-9 l Practice 374-3ac1f8 Herm emile 3d61bf 2015-11-16 2015-11-16 resend rx nullFlavo [place] 9f 83hk2f-0 [facility]oria 20:11:00 20:11:00 r Family db1-4457-a l Practice g16-2m051p Herm emile o2z877 2015-11-16 2015-11-16 resend rx nullFlavo [place] 39 tu9xti-4 Memoria 20:11:00 20:11:00 r Family j45-6244-f l Practice 878-7f10e4 Herm emile 888847 1353-09-23 2015-11-16 resend rx nullFlavo [place] a1 6qd12n-q [facility]oria 20:11:00 20:11:00 r Family 62e-4411-9 l Practice 374-3ac1f8 Herm emile 3d61bf 2015-11-16 2015-11-16 resend rx nullFlavo [place] 9f 40il4e-2 Memoria 20:11:00 20:11:00 r Family db1-4457-a l Practice m89-3f562l Herm emile p8d451 2015-11-16 2015-11-16 resend rx nullFlavo [place] 39 by9dpg-8 Memoria 20:11:00 20:11:00 r Family y96-3298-b l Practice 878-7f10e4 Herm emile 340539 6445-09-23 2015-11-16 xray order nullFlavo [place] a 3pb57z1-w [facility] 17:10:00 17:10:00 for r Family bfd-4f2c-b l shoulder Practice 05b-f35b7d Her chan 519009 6630-09-23 2015-11-16 xray order nullFlavo [place] 2 7v66207-u [facility]oria 17:10:00 17:10:00 for r Family 9t4-487b-v l shoulder Practice 4fe-05f1c2 Her chan 969042 6499-09-23 2015-11-16 xray order nullFlavo [place] a 0km33j8-f [facility] 17:10:00 17:10:00 for r Family bfd-4f2c-b l shoulder Practice 05b-f35b7d Her chan 634678 1152-09-23 2015-11-16 xray order nullFlavo [place] 9 cvr140q-h Memoria 17:10:00 17:10:00 for r Family cce-442a-a l shoulder Practice j38-v47w56 Her chan 659fc6 2015-11-16 2015-11-16 xray order nullFlavo [place] f w1h6751-y [facility] 17:10:00 17:10:00 for r Family j43-7901-3 l shoulder Practice 7i7-13353j Her chan 461a76 2015-11-16 2015-11-16 xray order nullFlavo [place] 4 3h8q0h3-x [facility]oria 17:10:00 17:10:00 for r Family 1de-480f-9 l shoulder Practice 2dc-g38165 Her chan 8p9971 2015-11-16 2015-11-16 xray order nullFlavo [place] b h6wt851-o Memoria 17:10:00 17:10:00 for r Family 1p4-83z2-0 l shoulder Practice r25-8n724j Her chan 73ac96 2015-11-16 2015-11-16 xray order nullFlavo [place] 2 7o94135-m Memoria 17:10:00 17:10:00 for r Family 3r0-484c-l l shoulder Practice 4fe-05f1c2 Her chan 881432 7895-09-23 2015-11-16 xray order nullFlavo [place] b i2bz939-q [facility]oria 17:10:00 17:10:00 for r Family 6f3-68o5-4 l shoulder Practice e29-1o454k Her chan 73ac96 2015-11-16 2015-11-16 xray order nullFlavo [place] 4 3s5n9e2-j Memoria 17:10:00 17:10:00 for r Family 1de-480f-9 l shoulder Practice 2dc-y34424 Her chan 7x5420 2015-11-16 2015-11-16 xray order nullFlavo [place] f p4g8120-t [facility]oria 17:10:00 17:10:00 for r Family b68-4486-0 l shoulder Practice 8y8-83395u Her chan 461a76 2015-11-16 2015-11-16 xray order nullFlavo [place] 9 toa548x-w Memoria 17:10:00 17:10:00 for r Family cce-442a-a l shoulder Practice j94-a53i28 Her chan 659fc6 2015-11-16 2015-11-16 xray order nullFlavo [place] 3 y47hwb5-t Memoria 16:10:00 16:10:00 for r Family 4fe-4851-9 l shoulder Practice 751-022c87 Her chan 216cb8 2015-11-16 2015-11-16 xray order nullFlavo [place] 9 0444ll0-u Memoria 16:10:00 16:10:00 for r Family 2ae-49ac-a l shoulder Practice 876-8b30f8 Her chan 114f5b 2015-11-16 2015-11-16 xray order nullFlavo [place] 1 8587s6m-7 Memoria 16:10:00 16:10:00 for beatriz Perez be7-497c-a l shoulder Practice w72-2o8808 Her chan 81ca26 2015-11-16 2015-11-16 xray order nullFlavo [place] e 7621ag3-j [facility]oria 16:10:00 16:10:00 for beatriz Perez 1bc-4d00-9 l shoulder Practice h27-724566 Her chan 17y402 2015-11-16 2015-11-16 xray order nullFlavo [place] 9 7371fh3-a Memoria 16:10:00 16:10:00 for beatriz Perez 2ae-49ac-a l shoulder Practice 876-8b30f8 Her chan 114f5b 2015-11-16 2015-11-16 xray order nullFlavo [place] 3 j31ocg3-b Memoria 16:10:00 16:10:00 for beatriz Perez 4fe-4851-9 l shoulder Practice 751-022c87 Her chan 216cb8 2015-11-16 2015-11-16 xray order nullFlavo [place] 1 1703r6g-0 Memoria 16:10:00 16:10:00 for beatriz Perez be7-497c-a l shoulder Practice s71-2q6886 Her chan 81ca26 2015-11-16 2015-11-16 xray order nullFlavo [place] e 6492bn4-h Memoria 16:10:00 16:10:00 for beatriz Perez 1bc-4d00-9 l shoulder Practice h98-758147 Her chan 51b024 2015-11-16 2015-11-16 Outpatient [facility] [place] 203 [id number] [facility] 15:11:00 15:11:00 [facility] 2015-11-16 2015-11-16 Outpatient [facility] [place] 203 4616 [facility] 11:10:00 11:10:00 [facility] 2015-11-16 2015-11-16 Outpatient nullFlavo [facility] 36509 Memoria 10:59:14 10:59:14 beatriz Mott 2015-11-16 2015-11-16 Outpatient nullFlavo [facility] 39300 Memoria 10:59:14 10:59:14 beatriz arias [facility] 2015-11-15 2015-11-15 shoulder nullFlavo [place] d8a b51f2-z [facility]oria 21:45:00 21:45:00 pain r Family 070-49b7-b l Practice 4a1-1z0aag Herm emile 3f46bd 2015-11-15 2015-11-15 shoulder nullFlavo [place] 93e 1bui0-8 Memoria 21:45:00 21:45:00 pain r Family o1u-22m7-v l Practice cfc-d80fc1 Herm emile 2w9028 2015-11-15 2015-11-15 shoulder nullFlavo [place] 88f 84m36-5 Memoria 21:45:00 21:45:00 pain r Family 742-46e3-a l Practice 952-438b8f Herm emile 99z693 2015-11-15 2015-11-15 shoulder nullFlavo [place] 742 33id4-8 Memoria 21:45:00 21:45:00 pain r Family 478-4fd9-9 l Practice 53d-f1eeb8 Herm emile d8ff25 2015-11-15 2015-11-15 shoulder nullFlavo [place] df5 19fbd-6 Memoria 21:45:00 21:45:00 pain r Family 4f7-8f93-8 l Practice n3q-16ig84 Herm emile td9985 2015-11-15 2015-11-15 shoulder nullFlavo [place] 2d0 cdfde-4 Memoria 21:45:00 21:45:00 pain r Family f91-9qaj-0 l Practice 316-536b2d Herm emile 845053 5361-09-22 2015-11-15 shoulder nullFlavo [place] d8a v86s7-z [facility] 21:45:00 21:45:00 pain r Family 070-49b7-b l Practice 0h4-2d1hob Herm emile 3f46bd 2015-11-15 2015-11-15 shoulder nullFlavo [place] 93e 6qgx5-4 Memoria 21:45:00 21:45:00 pain r Family a6a-80b9-i l Practice cfc-d80fc1 Herm emile 2f5622 2015-11-15 2015-11-15 shoulder nullFlavo [place] 2d0 cdfde-4 Memoria 21:45:00 21:45:00 pain r Family i24-2rqe-4 l Practice 316-536b2d Herm emile 590832 8760-09-22 2015-11-15 shoulder nullFlavo [place] df5 19fbd-6 Memoria 21:45:00 21:45:00 pain r Family 4p3-0t47-8 l Practice y6m-35oy84 Herm emile lq4458 2015-11-15 2015-11-15 shoulder nullFlavo [place] 742 66af9-5 Memoria 21:45:00 21:45:00 pain r Family 478-4fd9-9 l Practice 53d-f1eeb8 Herm emile d8ff25 2015-11-15 2015-11-15 shoulder nullFlavo [place] 88f 32a42-5 Memoria 21:45:00 21:45:00 pain r Family 742-46e3-a l Practice 952-438b8f Herm emile 79p135 2015-11-15 2015-11-15 shoulder nullFlavo [place] ec2 64327-b Memoria 20:45:00 20:45:00 pain r Family ad7-47ab-9 l Practice 96b-e14c9b Herm emile effd41 2015-11-15 2015-11-15 shoulder nullFlavo [place] ec2 82157-x Memoria 20:45:00 20:45:00 pain r Family ad7-47ab-9 l Practice 96b-e14c9b Herm emile effd41 2015-11-15 2015-11-15 Outpatient [facility] [place] 203 2716 [facility] 15:45:00 15:45:00 [facility] 2015-11-13 2015-11-13 verify nullFlavo [place] 735c f7a0-1 [facility] 16:56:00 16:56:00 benefits r Family 10e-4168-8 l Practice [id number] Herm emile [id number] 7214-09-20 2015-11-13 verify [place] [place] 88c0 28c8-6 [facility] 16:56:00 16:56:00 benefits r Family 427-4708-9 l Practice [id number]-1f60ae Herm emile 122d84 2015-11-13 2015-11-13 verify [place] [place] 85f3 215c-2 [facility] 16:56:00 16:56:00 benefits r Family 86d-499a-a l Practice [id number]-5ay681 Herm emile 29e44a 2015-11-13 2015-11-13 verify [place] [place] a71d 2188-a [facility] 16:56:00 16:56:00 benefits r Family i36-3688-m l Practice [id number] Herm emile [id number] 2015-11-13 2015-11-13 verify [place] [place] c5e5 80eb-b [facility] 16:56:00 16:56:00 benefits r Family 9k6-0oqe-v l Practice [id number] Herm emile [id number] 2015-11-13 2015-11-13 verify [place] [place] 83ed a013-2 [facility] 16:56:00 16:56:00 benefits r Family 610-4bd3-9 l Practice 8r4-5zx2p9 Herm emile 4619ed 2015-11-13 2015-11-13 verify [place] [place] 735c f7a0-1 [facility] 16:56:00 16:56:00 benefits r Family 10e-4168-8 l Practice [id number] Herm emile [id number] 7949-09-20 2015-11-13 verify [place] [place] 88c0 28c8-6 [facility] 16:56:00 16:56:00 benefits r Family 427-4708-9 l Practice 4ab-1f60ae Herm emile 122d84 2015-11-13 2015-11-13 verify [place] [place] 83ed a013-2 [facility] 16:56:00 16:56:00 benefits r Family 610-4bd3-9 l Practice [id number] Herm emile 4619ed 2015-11-13 2015-11-13 verify [facility] [place] c5e5 80eb-b [facility] 16:56:00 16:56:00 benefits r Family 7t5-0vsu-m l Practice [id number]-57513i Herm emile u1212d 2015-11-13 2015-11-13 verify [place] [place] a71d 2188-a [facility] 16:56:00 16:56:00 benefits r Family s44-9135-o l Practice [id number] Herm emile [id number] 2015-11-13 2015-11-13 verify [facility] [place] 85f3 215c-2 [facility] 16:56:00 16:56:00 benefits r Family 86d-499a-a l Practice [id number]-8ln627 Herm emile 29e44a 2015-11-13 2015-11-13 verify [facility] [place] 82e1 20f1-7 [facility] 15:56:00 15:56:00 benefits r Family cc5-4c38-9 l Practice 7t3-3t1y56 Herm emile 1ft586 2015-11-13 2015-11-13 verify [facility] [place] 89fd 7b68-9 [facility] 15:56:00 15:56:00 benefits r Family e7z-05hg-r l Practice [id number] Herm emile 6e02c5 2015-11-13 2015-11-13 verify [facility] [place] 2fcd 5d9d-7 [facility] 15:56:00 15:56:00 benefits r Family 71b-4276-b l Practice 5bc-2807d6 Herm emile 30f0e1 2015-11-13 2015-11-13 verify [facility] [place] be11 b9af-d [facility] 15:56:00 15:56:00 benefits r Family 471-4d4c-9 l Practice [id number] Herm emile [id number] 2015-11-13 2015-11-13 verify [facility] [place] e264 be08-8 [facility] 15:56:00 15:56:00 benefits r Family ef7-49f8-b l Practice bf4-47fae4 Herm emile a1ea93 2015-11-13 2015-11-13 verify [facility] [place] 82e1 20f1-7 [facility] 15:56:00 15:56:00 benefits r Family cc5-4c38-9 l Practice 6r1-6k6i20 Herm emile 2xo165 2015-11-13 2015-11-13 verify [place] [place] 2fcd 5d9d-7 [facility] 15:56:00 15:56:00 benefits r Family 71b-4276-b l Practice 5bc-2807d6 Herm emile 30f0e1 2015-11-13 2015-11-13 verify [facility] [place] 89fd 7b68-9 [facility] 15:56:00 15:56:00 benefits r Family w2y-23gg-p l Practice [id number] Herm emile 6e02c5 2015-11-13 2015-11-13 verify [facility] [place] be11 b9af-d [facility] 15:56:00 15:56:00 benefits r Family 471-4d4c-9 l Practice [id number] Herm emile 2aac26 2015-11-13 2015-11-13 verify [facility] [place] e264 be08-8 [facility] 15:56:00 15:56:00 benefits r Family ef7-49f8-b l Practice bf4-47fae4 Herm emile a1ea93 2015-11-13 2015-11-13 [facility] [id number] [facility] 10:56:00 10:56:00 [facility] [place] [facility] 2015-09-05 2015-09-05 account nullFlavo [place] a62a b242-c [facility] 15:27:00 15:27:00 balance r Family w01-681b-t l Practice 684-56e4b7 Herm emile 3a47b8 2015-09-05 2015-09-05 account nullFlavo [place] 8631 4426-3 Memoria 15:27:00 15:27:00 balance r Family 22e-44ef-b l Practice b7x-517173 Herm emile 391e5f 2015-09-05 2015-09-05 account nullFlavo [place] 8eb5 f46d-e [facility] 15:27:00 15:27:00 balance r Family 860-4392-a l Practice 872-011fa7 Herm emile 6aca78 2015-09-05 2015-09-05 account nullFlavo [place] cea5 d547-e [facility] 15:27:00 15:27:00 balance r Family d45-6d97-5 l Practice ff9-ada4ee Herm emile 0319b0 2015-09-05 2015-09-05 account nullFlavo [place] a6a2 b59a-7 [facility]oria 15:27:00 15:27:00 balance r Family 90d-4073-8 l Practice 0m0-t9j1a3 Herm emile 8bd29b 2015-09-05 2015-09-05 account nullFlavo [place] 6a54 9ca1-a [facility] 15:27:00 15:27:00 balance r Family ee7-467b-8 l Practice 9fa-634646 Herm emile l2o430 2015-09-05 2015-09-05 account nullFlavo [place] a62a b242-c [facility]oria 15:27:00 15:27:00 balance r Family o88-255p-s l Practice 684-56e4b7 Herm emile 3a47b8 2015-09-05 2015-09-05 account nullFlavo [place] 8631 4426-3 Memoria 15:27:00 15:27:00 balance r Family 22e-44ef-b l Practice n4x-162818 Herm emile 391e5f 2015-09-05 2015-09-05 account nullFlavo [place] 6a54 9ca1-a [facility] 15:27:00 15:27:00 balance r Family ee7-467b-8 l Practice 9fa-938952 Herm emile f0l920 2015-09-05 2015-09-05 account nullFlavo [place] a6a2 b59a-7 [facility] 15:27:00 15:27:00 balance r Family 90d-4073-8 l Practice 7x5-d3n4w2 Herm emile 8bd29b 2015-09-05 2015-09-05 account nullFlavo [place] cea5 d547-e [facility] 15:27:00 15:27:00 balance r Family o68-3h22-1 l Practice ff9-ada4ee Herm emile 0319b0 2015-09-05 2015-09-05 account nullFlavo [place] 8eb5 f46d-e [facility]oria 15:27:00 15:27:00 balance r Family 860-4392-a l Practice 872-011fa7 Herm emile 6aca78 2015-09-05 2015-09-05 account nullFlavo [place] c17c f693-8 [facility] 14:27:00 14:27:00 balance r Family ee3-4107-a l Practice 62a-6m418b Herm emile 2c4b4f 2015-09-05 2015-09-05 account nullFlavo [place] f2d5 5ebe-d [facility] 14:27:00 14:27:00 balance r Family j5z-6660-a l Practice aea-3w3550 Herm emile d11b8d 2015-09-05 2015-09-05 account nullFlavo [place] 96dd c28d-e Memoria 14:27:00 14:27:00 balance r Family cc7-49af-a l Practice 428-6y3736 Herm emile 31089h 2015-09-05 2015-09-05 account nullFlavo [place] a9a4 22c1-3 [facility]oria 14:27:00 14:27:00 balance r Family 429-498e-8 l Practice 0r1-318dng Herm emile 8adcb9 2015-09-05 2015-09-05 account nullFlavo [place] 5281 aad6-2 Memoria 14:27:00 14:27:00 balance r Family fe1-495f-a l Practice 456-2xe723 Herm emile 6d2c39 2015-09-05 2015-09-05 account nullFlavo [place] 1feb 6ac3-b Memoria 14:27:00 14:27:00 balance r Family 1e5-8917-q l Practice 0bd-6x0324 Herm emile 226b05 2015-09-05 2015-09-05 account nullFlavo [place] f2d5 5ebe-d [facility] 14:27:00 14:27:00 balance r Family d4o-0183-o l Practice aea-3u3637 Herm emile d11b8d 2015-09-05 2015-09-05 account nullFlavo [place] a9a4 22c1-3 [facility] 14:27:00 14:27:00 balance r Family 429-498e-8 l Practice 1d3-474qzj Herm emile 8adcb9 2015-09-05 2015-09-05 account nullFlavo [place] c17c f693-8 [facility] 14:27:00 14:27:00 balance r Family ee3-4107-a l Practice 62a-6y856b Herm emile 2c4b4f 2015-09-05 2015-09-05 account nullFlavo [place] 96dd c28d-e Memoria 14:27:00 14:27:00 balance r Family cc7-49af-a l Practice 428-2m1690 Herm emile 57004z 2015-09-05 2015-09-05 account nullFlavo [place] 5281 aad6-2 Memoria 14:27:00 14:27:00 balance r Family fe1-495f-a l Practice 456-2jv814 [facility] emile 6d2c39 2015-09-05 2015-09-05 account nullFlavo [place] 1feb 6ac3-b Mem[facility] 14:27:00 14:27:00 balance r 6i4-4827-y l Practice 0bd-6p6316 [facility] emile 226b05 2015-09-05 2015-09-05 Outpatient [facility] [place] 199 [id number] [facility] 09:27:00 09:27:00 [facility] 2015-07-12 2015-07-12 Outpatient nullFlavo [facility] [id number] Memoria 06:32:27 10:58:00 r l [place] 2015-07-12 2015-07-12 Outpatient 2.16.840. 2.16.840.1. 3 [id number] [facility] 06:32:27 10:58:00 [id number]. [id number] l 3.2081.20 81.2000 [facility] 2015-07-12 2015-07-12 Outpatient nullFlavo [facility] [id number] Memoria 06:32:27 10:58:00 r l [place] 2015-06-28 2015-06-29 Outpt Diag nullFlavo [facility] [id number] Memoria 15:08:00 04:59:00 Services r Outpatient 00 l Imaging - [place] [facility] [place] 2015-06-28 2015-06-29 Outpt Diag nullFlavo [facility] [address] 19392 Memoria 15:08:00 04:59:00 Services r Outpatient 00 l Imaging - [place] [facility] [place] 2015-06-28 2015-06-28 Outpatient Etminan, 2.16.840. [id number]. [id number] 10:08:00 23:59:00 Mohammad [id number]. [id number] 00 [id number] 5.67 2015-06-28 2015-06-28 Needs call nullFlavo [place] f 7554z39-h [facility] 17:25:00 17:25:00 back from beatriz Perez 51c-4626-b l [place] Practice 6fc-b0f7bd [facility] emile 204d66 2015-06-28 2015-06-28 Needs call nullFlavo [place] e hm496an-7 Memoria 17:25:00 17:25:00 back from r Family 935-482b-8 l MD Practice u35-19e243 Herm emile w1498p 2015-06-28 2015-06-28 Needs call nullFlavo [place] 7 70m252a-7 Memoria 17:25:00 17:25:00 back from r Family 126-464a-a l MD Practice a93-y3m492 Herm emile a60ef7 2015-06-28 2015-06-28 Needs call nullFlavo [place] 0 uryd8dj-3 Memoria 17:25:00 17:25:00 back from r Family bb5-4c15-a l MD Practice 110-f7be80 Herm emile cc3c28 2015-06-28 2015-06-28 Needs call nullFlavo [place] 5 e617526-8 Memoria 17:25:00 17:25:00 back from r Family u3r-0r9z-9 l MD Practice dda-4h510e Herm emile 2ddd6e 2015-06-28 2015-06-28 Needs call nullFlavo [place] 8 162l4b2-7 Memoria 17:25:00 17:25:00 back from r Family 83f-40bf-8 l MD Practice 287-1e8f00 Herm emile 9r3753 2015-06-28 2015-06-28 Needs call nullFlavo [place] f 4264k20-r [facility]oria 17:25:00 17:25:00 back from r Family 51c-4626-b l MD Practice 6fc-b0f7bd Herm emile 204d66 2015-06-28 2015-06-28 Needs call nullFlavo [place] e ls575de-8 Memoria 17:25:00 17:25:00 back from r Family 935-482b-8 l MD Practice m29-09q617 Herm emile c9562i 2015-06-28 2015-06-28 Needs call nullFlavo [place] 8 345q4o3-7 Memoria 17:25:00 17:25:00 back from r Family 83f-40bf-8 l MD Practice 287-1e8f00 Herm emile 3j2220 2015-06-28 2015-06-28 Needs call nullFlavo [place] 5 m592243-8 Memoria 17:25:00 17:25:00 back from r Family p0x-6i4u-8 l MD Practice dda-7a831q Herm emile 2ddd6e 2015-06-28 2015-06-28 Needs call nullFlavo [place] 0 ytes8hu-8 Memoria 17:25:00 17:25:00 back from r Family bb5-4c15-a l MD Practice 110-f7be80 Herm emile cc3c28 2015-06-28 2015-06-28 Needs call nullFlavo [place] 7 43h380a-3 Memoria 17:25:00 17:25:00 back from r Family 126-464a-a l MD Practice a30-n4t158 Herm emile a60ef7 2015-06-28 2015-06-28 Needs call nullFlavo [place] 4 s319na8-l Memoria 16:25:00 16:25:00 back from r Family 0k1-4310-e l MD Practice 0z8-8vw5v5 Herm emile 0708af 2015-06-28 2015-06-28 Needs call nullFlavo [place] e 091a02f-q Memoria 16:25:00 16:25:00 back from r Family fbb-4233-8 l MD Practice aac-eee865 Herm emile ux6715 2015-06-28 2015-06-28 Needs call nullFlavo [place] a 316fj7a-5 Memoria 16:25:00 16:25:00 back from r Family 856-4fb6-9 l MD Practice 0eb-54o960 Herm emile 0485c7 2015-06-28 2015-06-28 Needs call nullFlavo [place] 8 92547xa-e Memoria 16:25:00 16:25:00 back from r Family 920-4e42-9 l MD Practice 58b-dcef35 Herm emile 1ki130 2015-06-28 2015-06-28 Needs call nullFlavo [place] 0 657r9r9-4 Memoria 16:25:00 16:25:00 back from r Family 7ea-4105-9 l MD Practice p45-425t0f Herm emile 10185f 2015-06-28 2015-06-28 Needs call nullFlavo [place] 5 vag4178-3 Memoria 16:25:00 16:25:00 back from r Family df7-4399-9 l MD Practice w09-l0x0js Herm emile 78c1c1 2015-06-28 2015-06-28 Needs call nullFlavo [place] 1 50kh881-8 Memoria 16:25:00 16:25:00 back from r Family 6bf-487b-9 l MD Practice a76-e653pv Herm emile 241051 1254-05-05 2015-06-28 Needs call nullFlavo [place] 4 z325cz4-g Memoria 16:25:00 16:25:00 back from r Family 3q5-9892-d l MD Practice 8j7-5vb0c0 Herm emile 0708af 2015-06-28 2015-06-28 Needs call nullFlavo [place] e 688z09q-p Memoria 16:25:00 16:25:00 back from r Family fbb-4233-8 l MD Practice aac-dql641 Herm emile gl7925 2015-06-28 2015-06-28 Needs call nullFlavo [place] a 176nj2h-7 Memoria 16:25:00 16:25:00 back from r Family 856-4fb6-9 l MD Practice 0eb-85d829 Herm emile 0485c7 2015-06-28 2015-06-28 Needs call nullFlavo [place] 0 535o8m3-3 Memoria 16:25:00 16:25:00 back from r Family 7ea-4105-9 l MD Practice m33-567o9s Herm emile 50736c 2015-06-28 2015-06-28 Needs call nullFlavo [place] 1 50px569-2 Memoria 16:25:00 16:25:00 back from r Family 6bf-487b-9 l MD Practice u37-e690ew Herm emile 422907 0252-05-05 2015-06-28 Needs call nullFlavo [place] 8 13033su-n Memoria 16:25:00 16:25:00 back from r Family 920-4e42-9 l MD Practice 58b-dcef35 Herm emile 6se107 2015-06-28 2015-06-28 Needs call nullFlavo [place] 5 dpk9336-9 Memoria 16:25:00 16:25:00 back from r Family df7-4399-9 l MD Practice h32-y8b0tn Herm emile 78c1c1 2015-06-28 2015-06-28 Outpatient [facility] [place] 196 3225 [facility] 11:25:00 11:25:00 [facility] [place] [facility] 2015-06-25 2015-06-25 Unknown nullFlavo [place] d70b 51f1-0 Memoria 19:25:00 19:25:00 r Family 38e-4e96-9 l Practice 66f-553443 Herm emile d20de4 2015-06-25 2015-06-25 Unknown nullFlavo [place] 833f eda3-4 Memoria 19:25:00 19:25:00 r Family 100-4088-9 l Practice aae-43fc14 Herm emile 3d8d91 2015-06-25 2015-06-25 Unknown nullFlavo [place] 198f fad9-8 Memoria 19:25:00 19:25:00 r Family 6fd-4b59-b l Practice 7ce-fa0c78 Herm emile 8b19c5 2015-06-25 2015-06-25 Unknown nullFlavo [place] 4495 ca55-6 Memoria 19:25:00 19:25:00 r Family 6i5-2hi0-6 l Practice bfa-io3727 Herm emile c80d29 2015-06-25 2015-06-25 Unknown nullFlavo [place] 3bf9 191e-1 Memoria 19:25:00 19:25:00 r Family 9s6-11t3-2 l Practice 3ac-4q6248 Herm emile 36238u 2015-06-25 2015-06-25 Unknown nullFlavo [place] 22bd 2bec-8 Memoria 19:25:00 19:25:00 r Family 5h2-6b2j-a l Practice 1z1-6r71cl Herm emile 029a9a 2015-06-25 2015-06-25 Unknown nullFlavo [place] d70b 51f1-0 Memoria 19:25:00 19:25:00 r Family 38e-4e96-9 l Practice 66f-102340 Herm emile d20de4 2015-06-25 2015-06-25 Unknown nullFlavo [place] 833f eda3-4 Memoria 19:25:00 19:25:00 r Family 100-4088-9 l Practice aae-43fc14 Herm emile 3d8d91 2015-06-25 2015-06-25 Unknown nullFlavo [place] 22bd 2bec-8 Memoria 19:25:00 19:25:00 r Family 8b1-3q8z-d l Practice 7t5-7e90lb Herm emile 029a9a 2015-06-25 2015-06-25 Unknown nullFlavo [place] 3bf9 191e-1 Memoria 19:25:00 19:25:00 r Family 0c4-12k8-3 l Practice 3ac-4w6017 Herm emile 56945r 2015-06-25 2015-06-25 Unknown nullFlavo [place] 4495 ca55-6 Memoria 19:25:00 19:25:00 r Family 4a3-5dl3-7 l Practice bfa-cn6851 Herm emile c80d29 2015-06-25 2015-06-25 Unknown nullFlavo [place] 198f fad9-8 Memoria 19:25:00 19:25:00 r Family 6fd-4b59-b l Practice 7ce-fa0c78 Herm emile 8b19c5 2015-06-25 2015-06-25 Unknown nullFlavo [place] 757f 613c-0 Memoria 18:25:00 18:25:00 r Family 27b-4536-8 l Practice m2o-076v4r Herm emile d05bed 2015-06-25 2015-06-25 Unknown nullFlavo [place] f5f3 9694-f Memoria 18:25:00 18:25:00 r Family 7p2-6itp-c l Practice 3t3-258ect Herm emile 4d2f95 2015-06-25 2015-06-25 Unknown nullFlavo [place] c249 fa9f-6 Memoria 18:25:00 18:25:00 r Family 838-443e-9 l Practice cc6-6ee47f Herm emile 957082 4128-05-02 2015-06-25 Unknown nullFlavo [place] 388f 6878-e Memoria 18:25:00 18:25:00 r Family 10a-47fb-a l Practice dfe-80c9c8 Herm emile cc50f8 2015-06-25 2015-06-25 Unknown nullFlavo [place] f05c 44c5-a Memoria 18:25:00 18:25:00 r Family 1a3-756f-w l Practice 4y9-014tt8 Herm emile c679d3 2015-06-25 2015-06-25 Unknown nullFlavo [place] 1199 65b4-d Memoria 18:25:00 18:25:00 r Family 1bf-4b25-8 l Practice 4r1-qva174 Herm emile 8s6439 2015-06-25 2015-06-25 Unknown nullFlavo [place] f1e6 7f6b-4 Memoria 18:25:00 18:25:00 r Family s9o-28n2-g l Practice m87-4656a7 Herm emile 68d6a4 2015-06-25 2015-06-25 Unknown nullFlavo [place] be98 1e4a-0 Memoria 18:25:00 18:25:00 r Family 87d-48c8-9 l Practice 422-j2y206 Herm emile aa32fa 2015-06-25 2015-06-25 Unknown nullFlavo [place] 757f 613c-0 Memoria 18:25:00 18:25:00 r Family 27b-4536-8 l Practice t7x-819u4m Herm emile d05bed 2015-06-25 2015-06-25 Unknown nullFlavo [place] f05c 44c5-a Memoria 18:25:00 18:25:00 r Family 6k9-695t-f l Practice 6w3-585ek7 Herm emile c679d3 2015-06-25 2015-06-25 Unknown nullFlavo [place] c249 fa9f-6 Memoria 18:25:00 18:25:00 r Family 838-443e-9 l Practice cc6-6ee47f Herm emile 548961 5811-05-02 2015-06-25 Unknown nullFlavo [place] f5f3 9694-f Memoria 18:25:00 18:25:00 r Family 3e7-7zju-b l Practice 0u5-667duz Herm emile 4d2f95 2015-06-25 2015-06-25 Unknown nullFlavo [place] 1199 65b4-d Memoria 18:25:00 18:25:00 r Family 1bf-4b25-8 l Practice 8d2-wnu412 Herm emile 1y6149 2015-06-25 2015-06-25 Unknown nullFlavo [place] 388f 6878-e Memoria 18:25:00 18:25:00 r Family 10a-47fb-a l Practice dfe-80c9c8 Herm emile cc50f8 2015-06-25 2015-06-25 Unknown nullFlavo [place] f1e6 7f6b-4 Memoria 18:25:00 18:25:00 r Family w0w-20p1-c l Practice k69-9263x6 Herm emile 68d6a4 2015-06-25 2015-06-25 Unknown nullFlavo [place] be98 1e4a-0 Memoria 18:25:00 18:25:00 r Family 87d-48c8-9 l Practice 422-s6l482 Herm emile aa32fa 2015-06-25 2015-06-25 Outpatient [facility] [place] 196 1315 Memoria 13:25:00 13:25:00 [facility] 2015-05-03 2015-05-03 cough, nullFlavo [place] f837 8f58-f Memoria 17:15:00 17:15:00 chest r Family s6l-6ipw-r l congestion Practice i1u-7q8y49 H ermann , pain in ue601l scalp 2015-05-03 2015-05-03 cough, nullFlavo [place] ccaa c4c5-6 Memoria 17:15:00 17:15:00 chest r Family 0fc-403e-b l congestion Practice l19-m8f9bl H ermann , pain in 52w536 scalp 2015-05-03 2015-05-03 cough, nullFlavo [place] 44b7 692e-e Memoria 17:15:00 17:15:00 chest r Family 449-49e8-8 l congestion Practice cbe-a35cd0 H ermann , pain in f444fa scalp 2015-05-03 2015-05-03 cough, nullFlavo [place] 6fe9 2793-c Memoria 17:15:00 17:15:00 chest r Family fe5-489f-8 l congestion Practice 214-01d34c H ermann , pain in po3514 scalp 2015-05-03 2015-05-03 cough, nullFlavo [place] 4ae6 5688-b Memoria 17:15:00 17:15:00 chest r Family ce8-43f8-a l congestion Practice 781-b8cb02 H ermann , pain in 5fe61a scalp 2015-05-03 2015-05-03 cough, nullFlavo [place] 3bdc b4bc-e Memoria 17:15:00 17:15:00 chest r Family 32d-4da5-b l congestion Practice 8fd-855fb5 H ermann , pain in 46e5ee scalp 2015-05-03 2015-05-03 cough, nullFlavo [place] f837 8f58-f Memoria 17:15:00 17:15:00 chest r Family f8c-2zhm-w l congestion Practice a8i-7m9j86 H ermann , pain in ax412a scalp 2015-05-03 2015-05-03 cough, nullFlavo [place] ccaa c4c5-6 Memoria 17:15:00 17:15:00 chest r Family 0fc-403e-b l congestion Practice l12-r3p1xx H ermann , pain in 01f061 scalp 2015-05-03 2015-05-03 cough, nullFlavo [place] 3bdc b4bc-e Memoria 17:15:00 17:15:00 chest r Family 32d-4da5-b l congestion Practice 8fd-855fb5 H ermann , pain in 46e5ee scalp 2015-05-03 2015-05-03 cough, nullFlavo [place] 4ae6 5688-b Memoria 17:15:00 17:15:00 chest r Family ce8-43f8-a l congestion Practice 781-b8cb02 H ermann , pain in 5fe61a scalp 2015-05-03 2015-05-03 cough, nullFlavo [place] 6fe9 2793-c Memoria 17:15:00 17:15:00 chest r Family fe5-489f-8 l congestion Practice 214-01d34c H ermann , pain in lo1988 scalp 2015-05-03 2015-05-03 cough, nullFlavo [place] 44b7 692e-e Memoria 17:15:00 17:15:00 chest r Family 449-49e8-8 l congestion Practice cbe-a35cd0 H ermann , pain in f444fa scalp 2015-05-03 2015-05-03 cough, nullFlavo [place] 0f99 56fb-7 Memoria 16:15:00 16:15:00 chest r Family ef9-4994-9 l congestion Practice 4fb-97b04f H ermann , pain in 74a7da scalp 2015-05-03 2015-05-03 cough, nullFlavo [place] d4c2 3f7e-a Memoria 16:15:00 16:15:00 chest r Family 5bf-4ca6-b l congestion Practice b0x-4qz84b H ermann , pain in 890564 scalp 2015-05-03 2015-05-03 cough, nullFlavo [place] a60c 5b04-3 Memoria 16:15:00 16:15:00 chest r Family g9i-334g-7 l congestion Practice 8cf-8437dd H ermann , pain in 9423ff scalp 2015-05-03 2015-05-03 cough, nullFlavo [place] 227b acbf-1 Memoria 16:15:00 16:15:00 chest r Family 28f-4cd0-b l congestion Practice 951-7a7949 H ermann , pain in b1bb6b scalp 2015-05-03 2015-05-03 cough, nullFlavo [place] d512 13e3-e Memoria 16:15:00 16:15:00 chest r Family w3s-962m-3 l congestion Practice a8h-il8j2g H ermann , pain in f37d1d scalp 2015-05-03 2015-05-03 cough, nullFlavo [place] 6b75 6a6e-d Memoria 16:15:00 16:15:00 chest r Family cc5-4d30-8 l congestion Practice 5db-daa2ea H ermann , pain in 119a7b scalp 2015-05-03 2015-05-03 cough, nullFlavo [place] 62a0 d13b-0 Memoria 16:15:00 16:15:00 chest r Family 290-4c4c-8 l congestion Practice 182-569cc6 H ermann , pain in fa7dd3 scalp 2015-05-03 2015-05-03 cough, nullFlavo [place] 664e 8045-3 Memoria 16:15:00 16:15:00 chest r Family 877-4340-9 l congestion Practice f51-2c3nad H ermann , pain in 44e311 scalp 2015-05-03 2015-05-03 cough, nullFlavo [place] 3b5b bba6-4 Memoria 16:15:00 16:15:00 chest r Family ab6-443a-b l congestion Practice 7ef-a6db20 H ermann , pain in c0c78e scalp 2015-05-03 2015-05-03 cough, nullFlavo [place] 0f99 56fb-7 Memoria 16:15:00 16:15:00 chest r Family ef9-4994-9 l congestion Practice 4fb-97b04f H ermann , pain in 74a7da scalp 2015-05-03 2015-05-03 cough, nullFlavo [place] d512 13e3-e Memoria 16:15:00 16:15:00 chest r Family f3c-304r-9 l congestion Practice w6c-nk3q7d H ermann , pain in f37d1d scalp 2015-05-03 2015-05-03 cough, nullFlavo [place] a60c 5b04-3 Memoria 16:15:00 16:15:00 chest r Family e4s-145j-6 l congestion Practice 8cf-8437dd H ermann , pain in 9423ff scalp 2015-05-03 2015-05-03 cough, nullFlavo [place] d4c2 3f7e-a Memoria 16:15:00 16:15:00 chest r Family 5bf-4ca6-b l congestion Practice e0a-1ij40w H ermann , pain in 103474 scalp 2015-05-03 2015-05-03 cough, nullFlavo [place] 6b75 6a6e-d Memoria 16:15:00 16:15:00 chest r Family cc5-4d30-8 l congestion Practice 5db-daa2ea H ermann , pain in 119a7b scalp 2015-05-03 2015-05-03 cough, nullFlavo [place] 62a0 d13b-0 Memoria 16:15:00 16:15:00 chest r Family 290-4c4c-8 l congestion Practice 182-569cc6 H ermann , pain in fa7dd3 scalp 2015-05-03 2015-05-03 cough, nullFlavo [place] 227b acbf-1 Memoria 16:15:00 16:15:00 chest r Family 28f-4cd0-b l congestion Practice 951-2r9785 H ermann , pain in b1bb6b scalp 2015-05-03 2015-05-03 cough, nullFlavo [place] 664e 8045-3 Memoria 16:15:00 16:15:00 chest r Family 877-4340-9 l congestion Practice t96-4l2vsv H ermann , pain in 63y824 scalp 2015-05-03 2015-05-03 cough, nullFlavo [place] 3b5b bba6-4 Memoria 16:15:00 16:15:00 chest r Family ab6-443a-b l congestion Practice 7ef-a6db20 H ermann , pain in c0c78e scalp 2015-05-03 2015-05-03 Outpatient [facility] [place] [facility] 193 4942 [facility] 11:15:00 11:15:00 [facility] 2014-12-06 2014-12-06 *Refill nullFlavo [place] 980e 08ad-0 Memoria 16:12:00 16:12:00 r Family 307-40d5-a l Practice z6t-q93b8o Herm emile 7882f7 2014-12-06 2014-12-06 *Refill nullFlavo [place] 03c5 2aff-b Memoria 16:12:00 16:12:00 r Family 52b-48de-b l Practice 0v1-71a7qw Herm emile qg6467 2014-12-06 2014-12-06 *Refill nullFlavo [place] a456 d7cd-a Memoria 16:12:00 16:12:00 r Family 042-4aad-a l Practice b74-59hw74 Herm emile 68284a 2014-12-06 2014-12-06 *Refill nullFlavo [place] a113 a405-2 Memoria 16:12:00 16:12:00 r Family 063-4a53-a l Practice 457-15710r Herm emile 35d9a5 2014-12-06 2014-12-06 *Refill nullFlavo [place] 1316 758d-c Memoria 16:12:00 16:12:00 r Family m66-1518-g l Practice 74e-5d5b30 Herm emile 9cab85 2014-12-06 2014-12-06 *Refill nullFlavo [place] 8949 2d25-3 Memoria 16:12:00 16:12:00 r Family bb7-449b-9 l Practice p96-i80jy7 Herm emile b119f8 2014-12-06 2014-12-06 *Refill nullFlavo [place] a456 d7cd-a Memoria 16:12:00 16:12:00 r Family 042-4aad-a l Practice n88-64dt99 Herm emile 60730u 2014-12-06 2014-12-06 *Refill nullFlavo [place] 03c5 2aff-b Memoria 16:12:00 16:12:00 r Family 52b-48de-b l Practice 9y7-05q2bd Herm emile bd4755 2014-12-06 2014-12-06 *Refill nullFlavo [place] 980e 08ad-0 [facility] 16:12:00 16:12:00 r Family 307-40d5-a l Practice [id number]-y40k9x Herm emile [id number] 2014-12-06 2014-12-06 *Refill null[facility] [place] 8949 2d25-3 [facility] 16:12:00 16:12:00 r Family bb7-449b-9 l Practice [id number]-e54pt4 Herm emile [id number] 2014-12-06 2014-12-06 *Refill [place] [place] a113 a405-2 [facility] 16:12:00 16:12:00 r Family 063-4a53-a l Practice [id number] Herm emile [id number] 2014-12-06 2014-12-06 *Refill null[facility] [place] 1316 758d-c [facility] 16:12:00 16:12:00 r Family c22-6485-z l Practice 74e-5d5b30 Herm emile 9cab85 2014-12-06 2014-12-06 bill nullFl[facility] [place] c331 be18-e [facility] 16:10:00 16:10:00 r Family 548-4cad-a l Practice 29e-20cf4f Herm emile 9a35e8 2014-12-06 2014-12-06 bill nullFl[facility] [place] ec7a 7a39-5 [facility] 16:10:00 16:10:00 r Family f38-0483-s l Practice [id number]-r79205 Herm emile [id number] 2014-12-06 2014-12-06 bill nullFl[facility] [place] e63b e573-6 [facility] 16:10:00 16:10:00 r Family 81c-48ad-8 l Practice 5g4-a110wq Herm emile [id number] 4128-10-14 2014-12-06 bill nullFl[facility] [place] 114e 4f5d-c [facility] 16:10:00 16:10:00 r Family 941-4e66-8 l Practice [id number] Herm emile eb5c22 2014-12-06 2014-12-06 bill nullFl[facility] [place] 4235 ae23-b [facility] 16:10:00 16:10:00 r Family 5ca-4a73-b l Practice [id number]-42j639 Herm emile 1f5cae 2014-12-06 2014-12-06 bill nullFl[facility] [place] 5175 4b67-4 [facility] 16:10:00 16:10:00 r Family 765-4378-8 l Practice [id number] Herm emile [id number] 2014-12-06 2014-12-06 bill nullFl[facility] [place] c331 be18-e [facility] 16:10:00 16:10:00 r Family 548-4cad-a l Practice 29e-20cf4f Herm emile 9a35e8 2014-12-06 2014-12-06 bill nullFl[facility] [place] ec7a 7a39-5 [facility] 16:10:00 16:10:00 r Family k13-3745-q l Practice 51d-c93210 Herm emile [id number] 2014-12-06 2014-12-06 bill nullFl[facility] [place] 5175 4b67-4 [facility] 16:10:00 16:10:00 r Family 765-4378-8 l Practice [id number] Herm emile [id number] 2014-12-06 2014-12-06 bill nullFl[facility] [place] 4235 ae23-b [facility] 16:10:00 16:10:00 r Family 5ca-4a73-b l Practice [id number]-29u391 Herm emile 1f5cae 2014-12-06 2014-12-06 bill nullFl[facility] [place] 114e 4f5d-c [facility] 16:10:00 16:10:00 r Family 941-4e66-8 l Practice [id number] Herm emile eb5c22 2014-12-06 2014-12-06 bill nullFl[facility] [place] e63b e573-6 [facility] 16:10:00 16:10:00 r Family 81c-48ad-8 l Practice 4r0-w450uo Herm emile [id number] 8535-10-14 2014-12-06 *Refill [place] [place] 8ded cc0e-9 [facility] 15:12:00 15:12:00 r Family acc-4c6c-9 l Practice t4c-c33p0v Herm em[facility] [id number] 2014-12-06 2014-12-06 *Refill null[facility] [place] adeb c04d-e [facility] 15:12:00 15:12:00 r Family 365-455c-a l Practice [id number] Herm emile [id number] 2014-12-06 2014-12-06 *Refill nullFl[facility] [place] 898c 487f-d [facility] 15:12:00 15:12:00 r Family a40-2573-n l Practice 0fb-3a1cf6 Herm emile 54fba0 2014-12-06 2014-12-06 *Refill nullFl[facility] [place] d86c fa22-b [facility] 15:12:00 15:12:00 r Family ada-4c6b-b l Practice [id number] Herm emile c7bcc1 2014-12-06 2014-12-06 *Refill null[facility] [place] e21e e731-b [facility] 15:12:00 15:12:00 r Family e11-1zdi-a l Practice 816-3fa6ff Herm emile 5b40da 2014-12-06 2014-12-06 *Refill null[facility] [place] 0858 2798-d [facility] 15:12:00 15:12:00 r Family 442-42dd-8 l Practice [id number] Herm emlie [id number] 2014-12-06 2014-12-06 *Refill nullFl[place] 4476 8830-1 [facility] 15:12:00 15:12:00 r Family 33b-41b5-9 l Practice [id number] Herm emile fdfca0 2014-12-06 2014-12-06 *[facility] [place] 0882 cf8f-3 [facility] 15:12:00 15:12:00 r Family 92a-4fff-b l Practice n31-ta9p2n Herm emile 520a55 2014-12-06 2014-12-06 *[facility] [place] 76cd a709-0 [facility] 15:12:00 15:12:00 r Family 744-4309-8 l Practice n09-269674 Herm emile 4s9726 2014-12-06 2014-12-06 *[facility] [place] 59a3 f7b1-c [facility] 15:12:00 15:12:00 r Family 4ab-41f6-8 l Practice 7ca-acca76 Herm emile 477214 7647-10-14 2014-12-06 *[facility] [place] 30cb 03f4-6 [facility] 15:12:00 15:12:00 r Family 3aa-4549-8 l Practice x6e-7hwigm Herm emile 5766cc 2014-12-06 2014-12-06 *[facility] [place] adeb c04d-e [facility] 15:12:00 15:12:00 r Family 365-455c-a l Practice l01-r49365 Herm emile 75ab0d 2014-12-06 2014-12-06 *[facility] [place] 8ded cc0e-9 [facility] 15:12:00 15:12:00 r Family acc-4c6c-9 l Practice q5b-s32q5y Herm emile lf0228 2014-12-06 2014-12-06 *[facility] [place] 898c 487f-d [facility] 15:12:00 15:12:00 r Family y40-8921-z l Practice 0fb-3a1cf6 Herm emile 54fba0 2014-12-06 2014-12-06 *[facility] [place] 4476 8830-1 [facility] 15:12:00 15:12:00 r Family 33b-41b5-9 l Practice v72-3zx655 Herm emile fdfca0 2014-12-06 2014-12-06 *[facility] [place] e21e e731-b [facility] 15:12:00 15:12:00 r Family k33-1tco-k l Practice 816-3fa6ff Herm emile 5b40da 2014-12-06 2014-12-06 *[facility] [place] d86c fa22-b [facility] 15:12:00 15:12:00 r Family ada-4c6b-b l Practice 608-0v683n Herm emile c7bcc1 2014-12-06 2014-12-06 *[facility] [place] 0882 cf8f-3 [facility] 15:12:00 15:12:00 r Family 92a-4fff-b l Practice i37-oj8z2l Herm emile 520a55 2014-12-06 2014-12-06 *[facility] [place] 76cd a709-0 [facility] 15:12:00 15:12:00 r Family 744-4309-8 l Practice b31-656161 Herm emile 8m9999 2014-12-06 2014-12-06 *[facility] [place] 0858 2798-d [facility] 15:12:00 15:12:00 r Family 442-42dd-8 l Practice fa5-396dcd Herm emile 6j8951 2014-12-06 2014-12-06 *[facility] [place] 59a3 f7b1-c [facility] 15:12:00 15:12:00 r Family 4ab-41f6-8 l Practice 7ca-acca76 Herm emile 553308 1358-10-14 2014-12-06 *[facility] [place] 30cb 03f4-6 [facility] 15:12:00 15:12:00 r Family 3aa-4549-8 l Practice p9s-0pfylk Herm emile 5766cc 2014-12-06 2014-12-06 bill [facility] [place] c037 7b58-0 [facility] 15:10:00 15:10:00 r Family cc7-4d80-8 l Practice 3ca-c15b02 Herm emile 53489s 2014-12-06 2014-12-06 bill [facility] [place] ef43 4036-7 [facility] 15:10:00 15:10:00 r Family 009-4bd7-a l Practice 382-fc3b3d Herm emile 846901 5663-10-14 2014-12-06 [facility] [place] 13f4 6151-3 [facility] 15:10:00 15:10:00 r Family n9i-99d2-4 l Practice 1v5-1gfqv6 Herm emile y84029 2014-12-06 2014-12-06 bill [facility] [place] b710 b785-6 [facility] 15:10:00 15:10:00 r Family 5j2-4817-4 l Practice 010-995333 Herm emile 63b409 2014-12-06 2014-12-06 bill [facility] [place] 7446 0722-8 [facility] 15:10:00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 Reference Range Interpretation Comme nts Culture Observations (test code = COB1) NO ANAEROBES ISOLATED AT 5 DAYS.
[2023-01-17] MEDS ORDERED: IBUPROFEN 400 MG TAB ONE (15:18)
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
[2023-01-17 17:32] VITALS: BP 131/86; TEMP 98.5; O2SAT 96
== END 2023-01-17 17:27 | disposition home or self-care (01) ==
LOC: ER 14:41
DX: S92.251A Displaced fracture of navicular [scaphoid] of right foot, initial encounter for closed fracture (principal); S52.502A Unspecified fracture of the lower end of left radius, initial encounter for closed fracture; S52.602A Unspecified fracture of lower end of left ulna, initial encounter for closed fracture; S50.311A Abrasion of right elbow, initial encounter; S30.811A Abrasion of abdominal wall, initial encounter; W18.30XA Fall on same level, unspecified, initial encounter; Z88.5 Allergy status to narcotic agent
CPT/HCPCS: 74176; 99284